=== PATIENT | female | born 1980 | race Caucasian/White ===

== ENCOUNTER 2023-04-17 13:00 | Outpatient (RCR) | payer OTHER, SELFPAY | END 2023-08-15 23:59 | disposition home or self-care (01) | PROVIDERS: PCP Physician Assistant Medical; Visit Provider Physician Assistant Medical | DX: N94.2 Vaginismus (principal); M62.838 Other muscle spasm; N39.0 Urinary tract infection, site not specified; R52 Pain, unspecified; Z51.89 Encounter for other specified aftercare | CPT/HCPCS: 97110; 97112; 97140; 97162; 97535 ==

== ENCOUNTER 2023-04-18 12:49 | Outpatient (CLI) | payer OTHER, SELFPAY ==
--- NOTE | 2023-04-18 13:00 | CRLHL7_ITS ---
For Patients: As a result of the Century Cures Act, medical imaging exams and procedure reports are released immediately into your electronic medical record. You may view this report before your referring provider. If you have questions, please contact your health care provider. INDICATION: septated vaginal canal COMPARISON: none TECHNIQUE: 2D cotton scale and color Doppler images were acquired of the pelvis using a transabdominal and transvaginal approach. FINDINGS: Septated vaginal canal is subtly visualized. Uterus measures 9.5 cm in length by 3.8 cm in AP diameter by 4.9 cm in transverse dimension. The myometrium has a normal uniform echotexture. The endometrial lining measures 9 mm in composite thickness. Ovoid hyperechoic structure lower uterine segment measuring 1.4 x 0.6 x 1.1 cm. The right ovary measures 3.0 x 1.0 x 1.4 cm in size and the left ovary measures 4.2 x 1.6 x 2.0 cm. Incidental follicles left ovary. The ovaries demonstrate normal arterial and venous blood flow on color Doppler analysis. There are no suspicious fluid collections within the cul-de-sac. IMPRESSION: Septated vaginal canal. No uterine fibroid or endometrial fluid. Suspicion of endometrial polyp measuring 1.4 cm. Normal ovaries. Dictated by Keven Allen MD @ 04/18/2023 2:39:12 PM (Electronically Signed)
--- NOTE | 2023-04-18 13:00 | CRLHL7_ITS ---
For Patients: As a result of the Century Cures Act, medical imaging exams and procedure reports are released immediately into your electronic medical record. You may view this report before your referring provider. If you have questions, please contact your health care provider. CLINICAL HISTORY: ? mullerian defect due to septated vaginal canal COMPARISON: none TECHNIQUE: Seals scale and color Doppler images were acquired of the kidneys. FINDINGS: Sonographic images reveal a symmetric appearance of the kidneys. There is no evidence of hydronephrosis, mass or calculus. The right kidney measures 11.7cm in length and the left kidney measures 13.8cm in length. The renal cortex appears of normal thickness. Normal color Doppler images of the kidneys. IMPRESSION: Normal renal ultrasound. Dictated by Keven Allen MD @ 04/18/2023 2:32:24 PM (Electronically Signed)
== END 2023-04-18 12:50 | disposition home or self-care (01) ==
LOC: US 12:50
PROVIDERS: PCP Physician Assistant Medical; Visit Provider Obstetrics & Gynecology
DX: Q52.10 Doubling of vagina, unspecified (principal)
CPT/HCPCS: 76775; 76856

== ENCOUNTER 2023-06-27 07:11 | Day surgery (SDC) | payer OTHER, SELFPAY ==
[2023-06-27] MEDS: LACTATED RINGERS 1000 ML 1,000 ML 100 ML IV (07:20)
[2023-06-27 07:31] VITALS: BP 123/87; PULSE 99; RESP 16; TEMP 37.1; O2SAT 98; BMI 30.7
[2023-06-27] MEDS: SODIUM CHLORIDE 0.9 % (FLUSH) 10 ML SYRINGE IVF (07:31)
[2023-06-27 07:39] LABS: Ur HCG Qualitative* Negative (Negative)
--- NOTE | 2023-06-27 07:58 | W.ANESCHARGE ---
Anesthesia Charges Start Date/Time Anesthesia Start Date: 06/27/23 Anesthesia Start Time: 08:44 Stop Date/Time Anesthesia Stop Date: 06/27/23 Anesthesia Stop Time: 10:30
[2023-06-27 08:05] LABS: Hemoglobin* 10.1 gm/dL (12.0-16.0)
--- NOTE | 2023-06-27 10:19 | SUR.OPER ---
deficit of 100ml
[2023-06-27 10:30] VITALS: BP 113/83; PULSE 84; RESP 16; TEMP 36.6; O2SAT 98
--- NOTE | 2023-06-27 10:32 | W.ANESCHARGE ---
Anesthesia Charges Start Date/Time Anesthesia Start Date: 06/27/23 Anesthesia Start Time: 08:44 Stop Date/Time Anesthesia Stop Date: 06/27/23 Anesthesia Stop Time: 10:30
[2023-06-27 10:45] VITALS: BP 115/84; PULSE 85; RESP 16; O2SAT 98
[2023-06-27 11:00] VITALS: BP 120/86; PULSE 85; RESP 16; O2SAT 99
[2023-06-27 11:15] VITALS: BP 121/82; PULSE 86; RESP 16; O2SAT 99
--- NOTE | 2023-06-27 15:11 | W.PM.GYNPROC ---
Procedure Note Time Seen by Provider: 08:00 Date of procedure: 06/27/23 Procedure Description: Preoperative diagnosis: Kelsea is a 43 year-old G0 with longitudinal septum and endometrial polyp Postoperative diagnosis: Same Procedure: Hysteroscopy, dilation and curettage, polypectomy, longitudinal vaginal septum resection, pap smear with HPV Anesthesia: Conscious sedation with paracervical block. Surgeon: Donya Wharton MD Estimated blood loss: 10 mL Specimen: Endometrial curettings to pathology. Findings: Exam under anesthesia: Cervix palpates normal. 2x1 cm Daryl duct cyst on left vaginal sidewall. Uterus: mid position, 5 week size, mobile, without nodularity/masses palpable. Adnexa were without fullness or nodularity. 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 On hysteroscopy: Multiple polyps appreciated. Normal bilateral ostia. Procedure: Kelsea was taken to the operating where conscious sedation was found to be adequate. She was placed in the dorsal lithotomy position. An exam under anesthesia was performed with findings stated above. She was then prepped and draped in normal sterile manner. A bivalve pediatric metal speculum was placed on the right side of vaginal canal. Cervix was normal appearing. A paracervical block was placed using 1% lidocaine with epi: 5 mL injected at the 4 and 8 o'clock positions on the cervix. The anterior lip of the cervix was then grasped with a long Allis clamp. The cervix was dilated to Hegar 6. The uterus sounded to 6 cm. The hysteroscope advanced into the uterus and a diagnostic hysteroscopy was performed with findings stated above. Normal saline was used as the insufflation medium. Soft tissue shaver was used for polypectomy. The hysteroscope was then removed. Fluid deficit at the end of the procedure 100 mL. Attention was then turned towards the vaginal septum resection. The posterior base of longitudinal vaginal septum was transected with electrocautery. A red rubber catheter was placed inside the urethra for the transection of the anterior margin. After the resection, 2-0 Vicryl was used to over-sew anterior and posterior vaginal mucosa until hemostasis was assured. Lastly, a pap smear was performed. Allis clamp were removed from the uterus and cervix. Excellent hemostasis noted. Nothing was used for hemostasis. Red rubber removed. The patient tolerated the procedure well. Sponge, lap and instruments counts were correct at the end of the procedure. The patient was awakened from anesthesia and taken to the recovery area in stable condition.
== END 2023-06-27 11:37 | disposition home or self-care (01) ==
PROVIDERS: PCP Physician Assistant Medical; Visit Provider Obstetrics & Gynecology
PROC: 0UDB8ZZ Extraction of Endometrium, Via Natural or Artificial Opening Endoscopic (ICD-10-PCS; CPT 58558; principal; 2023-06-27 08:30)
DX: N84.0 Polyp of corpus uteri (principal); Q52.129 Other and unspecified longitudinal vaginal septum
CPT/HCPCS: 58558; 57130; 36415; 81025; 85018; 87624; 88175; 88305; 952; J1100; J1885; J2250; J2405; J2704; J3010; J7120

== ENCOUNTER 2025-06-19 13:00 | Outpatient (RCR) | payer OTHER, SELFPAY | END 2025-10-17 23:59 | disposition home or self-care (01) | PROVIDERS: PCP Physician Assistant Medical; Referring Provider Physician Assistant Medical; Visit Provider Obstetrics & Gynecology | DX: N94.2 Vaginismus (principal); Z51.89 Encounter for other specified aftercare | CPT/HCPCS: 97110; 97140; 97162; 97535 ==